=== PATIENT | male | born 1975 | race Caucasian/White ===

== ENCOUNTER 2017-01-10 11:20 | Emergency (ER) | payer BC ==
[~2017-01-10] VITALS: Ht 172.7 cm; Wt 90.7 kg
--- NOTE | ~2017-01-10 | CR72 ---
[facility] A Service of [facility] RADIOLOGY TEXT RESULTS PATIENT: VIVEK SINGH LOCATION: [facility] : 79 UNIT #: [id number] AGE: [address]: Fox Singleton MD SEX: M ORDER DR: [id number] [facility] [address] [place], [place] [address] [id number] E MR#: [id number] Acc #: [id number] NAME: VIVEK SINGH : 1975 SEX: M STUDY DATE/TIME: 01/10/2017 12:41 UNIT: [facility] ROOM: STUDY DESCRIPTION: CR Chest Single View Portable Attending Physician: Fox Singleton M.D. Ordering Physician: Fox Singleton M.D. Primary Care Physician: James Ross M.D. MEDICAL IMAGING REPORT This report is preliminary unless electronic signature is present EXAM Portable chest HISTORY Cough and shortness of air for 4 days. FINDINGS Cardiac size and pulmonary vascularity are normal. Minimal linear atelectasis or scarring in the lateral left base. No airspace infiltrates or effusions. IMPRESSION No acute findings and no active disease. Dictated by... Judson Duffy M.D. THIS IS AN ELECTRONICALLY VERIFIED REPORT Judson Duffy M.D. at 01/10/2017 6:11 PM [email or web address]/[email or web address] TD: 01/10/2017 17:24 JOB #: [id number] MEDICAL IMAGING REPORT Page 1 of 1 COPY
--- NOTE | ~2017-01-10 | US85 ---
[facility] A Service of [facility] RADIOLOGY TEXT RESULTS PATIENT: VIVEK SINGH LOCATION: [facility] : 79 UNIT #: [id number] AGE: [address]: Fox Singleton MD SEX: M ORDER DR: [id number] [facility] [address] [place], [place] [address] [id number] E MR#: [id number] Acc #: [id number] NAME: VIVEK SINGH. : 1975 SEX: M STUDY DATE/TIME: 01/10/2017 12:22 UNIT: [facility] ROOM: STUDY DESCRIPTION: [employer] Attending Physician: Fox Singleton M.D. Ordering Physician: Fox Singleton M.D. Primary Care Physician: James Ross M.D. MEDICAL IMAGING REPORT This report is preliminary unless electronic signature is present EXAM Right lower extremity duplex venous ultrasound COMPARISON None INDICATIONS A 41-year-old male with edema of the right leg for 1 day. History of right leg DVT. Pain has been present in the right leg for 4 days. FINDINGS There is occlusive thrombus within the mid and distal superficial femoral veins as well as within the popliteal vein. Right greater saphenous vein and common femoral vein are fully compressible, and no flow is seen in the right anterior tibial vein or the posterior tibial or peroneal veins. IMPRESSION Occlusive deep venous thrombosis involving the anterior tibial, popliteal and mid and distal segments of the superficial femoral vein on the right. The posterior tibial and peroneal veins are not well seen and occlusive thrombus cannot be excluded in those locations either. Dictated by... Duc Allen M.D. THIS IS AN ELECTRONICALLY VERIFIED REPORT Duc Allen M.D. at 01/17/2017 4:53 PM Edy TD: 01/10/2017 16:27 [facility] A Service of [facility] RADIOLOGY TEXT RESULTS PATIENT: VIVEK [facility]IGNH [id number] 79 UNIT #: [id number] AGE: [address]: Fox Singleton MD SEX: M ORDER DR: JOB #: [id number] MEDICAL IMAGING REPORT Page 1 of 1 COPY
[~2017-01-10 11:20] MED LIST: AVAPRO PO; COUMADIN PO; NEXIUM PO
== END 2017-01-10 15:17 | disposition home or self-care (01) ==
LOC: CED 11:20
DX: I82.411 Acute embolism and thrombosis of right femoral vein (principal); I82.431 Acute embolism and thrombosis of right popliteal vein; I82.441 Acute embolism and thrombosis of right tibial vein; I10 Essential (primary) hypertension; Z79.899 Other long term (current) drug therapy
CPT/HCPCS: 71010; 93971; 99284